=== PATIENT | female | born 1955 | race Caucasian/White ===

== ENCOUNTER → 2018-06-13 | Outpatient (CLI) | payer MEDICAID ==
[~2018-06-13] MED LIST: APIX5TAB PO; DILT360C26 PO; LEVO125T5 PO; LORA-446 PO; METO25TA35 PO; SOTA80TA18 PO
[2018-06-13 14:35] LABS: BASOPHILS # (AUTO) 0.07 x10^3/uL (0-0.1); BASOPHILS % (AUTO) 1 % (0-1); EOSINOPHILS # (AUTO) 0.19 x10^3/uL (0-0.4); EOSINOPHILS % (AUTO) 2 % (1-7); LYMPHOCYTES # (AUTO) 2.57 x10^3/uL (1-3.4); LYMPHOCYTES % (AUTO) 22 % (22-44); MD NO; MEAN CORPUSCULAR HEMOGLOBIN 26.4 pg (27.0-34.8); MEAN CORPUSCULAR HGB CONC 32.7 g/dL (32.4-35.8); MEAN CORPUSCULAR VOLUME 80.9 fL (80-100); MEAN PLATELET VOLUME 9.9 fL (7.4-10.4); MONOCYTES # (AUTO) 1.17 x10^3/uL (0.2-0.8); MONOCYTES % (AUTO) 10 % (2-9); NEUTROPHILS # (AUTO) 7.68 x10^3/uL (1.8-6.8); NEUTROPHILS % (AUTO) 66 % (42-75); PLATELET COUNT 265 x10^3/uL (130-400); RED BLOOD COUNT 6.39 x10^6/uL (3.82-5.3); RED CELL DISTRIBUTION WIDTH 15.8 % (9.6-15.2)
[2018-06-13 14:48] LABS: ALBUMIN 4.1 g/dL (3.4-5.0); ANION GAP 9 mmol/L (5-15); CALCIUM 8.9 mg/dL (8.5-10.1); CHLORIDE 108 mmol/L (98-107)
[2018-06-13 14:52] LABS: ALANINE AMINOTRANSFERASE 26 U/L (12-78); ALKALINE PHOSPHATASE 126 U/L (45-117); BILIRUBIN,TOTAL 0.9 mg/dL (0.2-1.0); CREATININE 1.56 mg/dL (0.55-1.02); TOTAL PROTEIN 7.4 g/dL (6.4-8.2)
== END | disposition home or self-care (01) ==
LOC: STAR 13:42
PROVIDERS: ATTEND Internal Medicine Cardiovascular Disease
DX: Z01.818 Encounter for other preprocedural examination (principal); I48.91 Unspecified atrial fibrillation
CPT/HCPCS: 36415; 80053; 85025

== ENCOUNTER → 2018-06-13 | Outpatient (CLI) | payer MEDICAID ==
[~2018-06-13] MED LIST changes: -LORA-446 PO; -METO25TA35 PO; +OMNIPAQUE 350 MG/ML, 150 ML BOTTLE ONE; -SOTA80TA18 PO
== END | disposition home or self-care (01) ==
LOC: CFH 12:00
PROVIDERS: ATTEND Internal Medicine Cardiovascular Disease
DX: I25.10 Atherosclerotic heart disease of native coronary artery without angina pectoris (principal)
CPT/HCPCS: 71046; 75572; Q9967

== ENCOUNTER 2018-06-19 05:57 | Inpatient (IN) | payer MEDICAID ==
[2018-06-13 15:24] VITALS: BP 138/97
[~2018-06-19] VITALS: Ht 170.2 cm; Wt 100.2 kg
[~2018-06-19 05:57] MED LIST changes: -OMNIPAQUE 350 MG/ML, 150 ML BOTTLE ONE
[2018-06-19] MEDS ORDERED: SODIUM CHLORIDE 0.9% 1,000 ML IV SCH ×2 (06:01→06:30)
[2018-06-19] MEDS ORDERED: METO25TA35 PO (06:21)
[2018-06-19] MEDS ORDERED: LORA-446 PO (06:21)
[2018-06-19] MEDS ORDERED: LIDOCAINE 1%, 50ML ONE (07:40)
[2018-06-19] MEDS ORDERED: PROTAMINE SULFATE 10 MG/ML, 5ML ONE (07:40)
[2018-06-19] MEDS ORDERED: HEPARIN 1,000 UNITS/ML, 10ML ONE ×2 (07:40→07:41)
[2018-06-19] MEDS ORDERED: MIDAZOLAM 1 MG/ML, 2ML ONE (07:57)
[2018-06-19] MEDS ORDERED: FENTANYL PF 250 MCG/5ML ONE (07:58)
[2018-06-19] MEDS ORDERED: SUCCINYLCHOLINE 20 MG/ML, 10ML ONE (08:03)
[2018-06-19] MEDS ORDERED: PHENYLEPHRINE 10 MG/ML ONE (08:03)
[2018-06-19] MEDS ORDERED: ROCURONIUM 10 MG/ML,10ML ONE (08:03)
[2018-06-19] MEDS ORDERED: PROPOFOL 10 MG/ML, 20ML ONE (10:32)
[2018-06-19] MEDS ORDERED: ONDANSETRON 2MG/ML, 2ML ONE ×2 (10:33)
[2018-06-19] MEDS ORDERED: DEXAMETHASONE 4 MG/ML, 1ML ONE ×2 (10:33)
[2018-06-19] MEDS ORDERED: ALBUTEROL SULFATE 2.5 MG/3 ML ONE ×3 (10:58→19:11)
[2018-06-19] MEDS ORDERED: PROMETHAZINE 12.5 MG SUPP PR PRN (11:00)
[2018-06-19] MEDS ORDERED: MIDAZOLAM 1 MG/ML, 2ML IV PRN (11:00)
[2018-06-19] MEDS ORDERED: LORazepam 1MG TABLET PO PRN (11:00)
[2018-06-19] MEDS: ALBUTEROL SULFATE 2.5 MG/3 ML NPPB PRN ×2 (11:00→11:15)
[2018-06-19] MEDS ORDERED: ACETAMINOPHEN 325 MG TABLET PO PRN (11:00)
[2018-06-19] MEDS ORDERED: MEPERIDINE/PF 25MG/0.5ML IVPush PRN (11:00)
[2018-06-19] MEDS ORDERED: hydrALAzine 20 MG/ML, 1ML IV PRN (11:00)
[2018-06-19] MEDS ORDERED: LORazepam 2 MG/ML, 1ML IVPush PRN (11:00)
[2018-06-19] MEDS ORDERED: FENTANYL PF 100 MCG/2ML IV PRN (11:00)
[2018-06-19] MEDS ORDERED: OXYcodone 5 MG/5 ML ORAL.SOL UDC PO PRN (11:00)
[2018-06-19] MEDS ORDERED: ONDANSETRON 2MG/ML, 2ML IV PRN (11:00)
[2018-06-19] MEDS ORDERED: LABETALOL 5MG/ML, 20ML IV PRN (11:00)
[2018-06-19] MEDS ORDERED: HYDROmorphone 1 MG/ML, 1ML IV PRN (11:00)
[2018-06-19] MEDS ORDERED: PROMETHAZINE 25 MG/ML, 1ML IV PRN (11:00)
[2018-06-19] MEDS ORDERED: EPHEDRINE 50 MG/ML, 1ML IVPush PRN (11:00)
[2018-06-19] MEDS ORDERED: ONDANSETRON ODT 8 MG PO PRN (11:00)
[2018-06-19] MEDS ORDERED: OXYcodone 5 MG/5 ML ORAL.SOL UDC ONE (11:57)
[2018-06-19] MEDS ORDERED: APIXABAN 5 MG TABLET ONE (11:57)
[2018-06-19] MEDS: APIXABAN 5 MG TABLET PO SCH (11:59)
[2018-06-19] MEDS ORDERED: LORazepam 2 MG/ML, 1ML ONE (12:02)
[2018-06-19 12:38] VITALS: BP 93/65
[2018-06-19 17:37] VITALS: BP 125/72
[2018-06-19] MEDS: SOTALOL 80MG TABLET PO SCH (17:44)
[2018-06-19] MEDS: ACETAMINOPHEN 325 MG TABLET PO PRN (17:45)
[2018-06-19 18:56] VITALS: BP 108/73
[2018-06-19] MEDS ORDERED: ALBUTEROL SULFATE 2.5 MG/3 ML NPPB PRN (19:30)
[2018-06-19] MEDS ORDERED: ALBUTEROL/IPRATROPIUM 2.5MG/0.5MG, 3 ML NPPB SCH (20:00)
[2018-06-20 02:29] VITALS: BP 124/86
[2018-06-20] MEDS ORDERED: LEVOTHYROXINE 125 MCG TABLET PO SCH ×2 (06:00→09:00)
[2018-06-20 06:03] VITALS: BP 148/98
[2018-06-20] MEDS: SOTALOL 80MG TABLET PO SCH ×2 (06:09→17:28)
[2018-06-20 07:45] VITALS: BP 118/76
[2018-06-20] MEDS: DILTIAZEM CD 180 MG CAP.ER.24H PO SCH (08:39)
[2018-06-20] MEDS: APIXABAN 5 MG TABLET PO SCH ×2 (08:39→20:09)
[2018-06-20 12:56] VITALS: BP 114/74
[2018-06-20 17:26] VITALS: BP 151/96
[2018-06-20] MEDS: ACETAMINOPHEN 325 MG TABLET PO PRN (17:28)
[2018-06-20 18:49] VITALS: BP 131/83
[2018-06-20] MEDS: ZOLPIDEM 5MG TABLET PO PRN (20:09)
[2018-06-21 01:09] VITALS: BP 114/78
[2018-06-21] MEDS: SOTALOL 80MG TABLET PO SCH ×2 (05:40→17:59)
[2018-06-21 07:25] VITALS: BP 143/95
[2018-06-21] MEDS: APIXABAN 5 MG TABLET PO SCH ×2 (08:55→19:57)
[2018-06-21] MEDS: DILTIAZEM CD 180 MG CAP.ER.24H PO SCH (08:56)
[2018-06-21 12:25] VITALS: BP 153/93
[2018-06-21] MEDS: ACETAMINOPHEN 325 MG TABLET PO PRN (13:31)
[2018-06-21] MEDS: GUAIFENESIN ER 600 MG TABLET PO SCH ×2 (15:32→19:57)
[2018-06-21 18:29] VITALS: BP 149/87
[2018-06-21] MEDS: ZOLPIDEM 5MG TABLET PO PRN (19:57)
[2018-06-22 00:57] VITALS: BP 146/92
[2018-06-22] MEDS: SOTALOL 80MG TABLET PO SCH (06:21)
[2018-06-22 07:18] VITALS: BP 162/98
[2018-06-22] MEDS: DILTIAZEM CD 180 MG CAP.ER.24H PO SCH (09:05)
[2018-06-22] MEDS: APIXABAN 5 MG TABLET PO SCH (09:06)
[2018-06-22] MEDS: GUAIFENESIN ER 600 MG TABLET PO SCH (09:07)
[2018-06-22] MEDS ORDERED: SOTA80TA18 PO (11:29)
== END 2018-06-22 13:23 | disposition home or self-care (01) | DRG 274 ==
LOC: CACL 05:57 → ORIP 10:44 → 5SO 13:46
PROVIDERS: ADMIT Internal Medicine Cardiovascular Disease; ATTEND Internal Medicine Cardiovascular Disease
PROC: 02K83ZZ Map Conduction Mechanism, Percutaneous Approach (ICD-10-PCS; 2018-06-19)
PROC: 4A023FZ Measurement of Cardiac Rhythm, Percutaneous Approach (ICD-10-PCS; 2018-06-19)
PROC: 4A0234Z Measurement of Cardiac Electrical Activity, Percutaneous Approach (ICD-10-PCS; 2018-06-19)
PROC: B51 Imaging, Veins, Fluoroscopy (ICD-10-PCS; 2018-06-19)
PROC: 03HY32Z Insertion of Monitoring Device into Upper Artery, Percutaneous Approach (ICD-10-PCS; 2018-06-19)
PROC: 4A133B1 Monitoring of Arterial Pressure, Peripheral, Percutaneous Approach (ICD-10-PCS; 2018-06-19)
PROC: 4A133J1 Monitoring of Arterial Pulse, Peripheral, Percutaneous Approach (ICD-10-PCS; 2018-06-19)
PROC: 02583ZZ Destruction of Conduction Mechanism, Percutaneous Approach (ICD-10-PCS; principal; 2018-06-19 08:00)
DX: I48.0 Paroxysmal atrial fibrillation (principal); D68.69 Other thrombophilia; J44.1 Chronic obstructive pulmonary disease with (acute) exacerbation; E03.9 Hypothyroidism, unspecified; I27.20 Pulmonary hypertension, unspecified; I11.9 Hypertensive heart disease without heart failure; G89.29 Other chronic pain; E66.9 Obesity, unspecified; Z72.0 Tobacco use
CPT/HCPCS: 93613; 93656; 93662; J7613; J7620; 85347; 93005; 93306; 93312; 93321; 93325; 94640; C1732; C1766; C1893; C1894; J1100; J1644; J2250; J2405; J2704; J2720; J3010; J3490; C1730; C1759; J0330; J2060; J2370; Q9967

== ENCOUNTER 2018-06-24 15:23 | Inpatient (IN) | payer MEDICAID ==
[~2018-06-24] VITALS: Ht 170.2 cm; Wt 95.5 kg
[~2018-06-24 15:23] MED LIST changes: +LORA-446 PO; +METO25TA35 PO; +SOTA80TA18 PO
[2018-06-24 15:26] VITALS: BP 128/82
[2018-06-24] MEDS ORDERED: DILTIAZEM 125 MG in SODIUM CHLORIDE 0.9% 100 ML IV PRN (15:30)
[2018-06-24] MEDS ORDERED: PLEASE ENTER HEIGHT AND WEIGHT MC SCH (16:00)
[2018-06-24] MEDS ORDERED: LORazepam 1MG TABLET PO PRN (16:30)
[2018-06-24] MEDS ORDERED: DOCUSATE 100 MG CAPSULE PO PRN (16:30)
[2018-06-24] MEDS ORDERED: POLYETHYLENE GLYCOL 17 GM PACKET PO PRN (16:30)
[2018-06-24] MEDS ORDERED: ACETAMINOPHEN 325 MG TABLET PO PRN (16:30)
[2018-06-24] MEDS ORDERED: BISACODYL 10 MG SUPP PR PRN (16:30)
[2018-06-24] MEDS: SOTALOL 80MG TABLET PO SCH (17:17)
[2018-06-24 17:20] LABS: THYROID STIMULATING HORMONE 6.7 mIU/L (0.358-3.740)
[2018-06-24 18:32] LABS: BASOPHILS # (AUTO) 0.03 x10^3/uL (0-0.1); BASOPHILS % (AUTO) 0 % (0-1); EOSINOPHILS # (AUTO) 0.03 x10^3/uL (0-0.4); EOSINOPHILS % (AUTO) 0 % (1-7); LYMPHOCYTES % (AUTO) 16 % (22-44); MD NO; MEAN CORPUSCULAR HEMOGLOBIN 26.2 pg (27.0-34.8); MEAN CORPUSCULAR HGB CONC 32.2 g/dL (32.4-35.8); MEAN CORPUSCULAR VOLUME 81.5 fL (80-100); MEAN PLATELET VOLUME 10.4 fL (7.4-10.4); MONOCYTES # (AUTO) 0.77 x10^3/uL (0.2-0.8); MONOCYTES % (AUTO) 6 % (2-9); NEUTROPHILS # (AUTO) 9.93 x10^3/uL (1.8-6.8); NEUTROPHILS % (AUTO) 77 % (42-75); PLATELET COUNT 278 x10^3/uL (130-400); RED BLOOD COUNT 6.38 x10^6/uL (3.82-5.3); RED CELL DISTRIBUTION WIDTH 15.7 % (9.6-15.2)
[2018-06-24] MEDS: SODIUM CHLORIDE 0.9% 1,000 ML IV SCH (18:34)
[2018-06-24 18:49] LABS: CHLORIDE 107 mmol/L (98-107)
[2018-06-24 18:50] LABS: ALANINE AMINOTRANSFERASE 52 U/L (12-78); ALBUMIN 3.6 g/dL (3.4-5.0); ANION GAP 7 mmol/L (5-15); CALCIUM 8.8 mg/dL (8.5-10.1); CREATININE 1.33 mg/dL (0.55-1.02)
[2018-06-24 19:00] LABS: ALKALINE PHOSPHATASE 137 U/L (45-117); BILIRUBIN,TOTAL 1.1 mg/dL (0.2-1.0); FREE T4 (FREE THYROXINE) 0.86 ng/dL (0.76-1.46); TOTAL PROTEIN 7.3 g/dL (6.4-8.2)
[2018-06-24 20:00] VITALS: BP 113/83
[2018-06-24] MEDS: APIXABAN 5 MG TABLET PO SCH (21:56)
[2018-06-24] MEDS: ZOLPIDEM 5MG TABLET PO PRN (21:56)
[2018-06-25 02:00] VITALS: BP 107/71
[2018-06-25 04:21] VITALS: BP 173/85
[2018-06-25 05:57] LABS: BASOPHILS # (AUTO) 0.04 x10^3/uL (0-0.1); BASOPHILS % (AUTO) 0 % (0-1); EOSINOPHILS # (AUTO) 0.15 x10^3/uL (0-0.4); EOSINOPHILS % (AUTO) 1 % (1-7); LYMPHOCYTES # (AUTO) 2.35 x10^3/uL (1-3.4); LYMPHOCYTES % (AUTO) 21 % (22-44); MD NO; MEAN CORPUSCULAR HEMOGLOBIN 26.3 pg (27.0-34.8); MEAN CORPUSCULAR HGB CONC 32.4 g/dL (32.4-35.8); MEAN CORPUSCULAR VOLUME 81.3 fL (80-100); MEAN PLATELET VOLUME 9.5 fL (7.4-10.4); MONOCYTES % (AUTO) 12 % (2-9); NEUTROPHILS # (AUTO) 7.41 x10^3/uL (1.8-6.8); NEUTROPHILS % (AUTO) 66 % (42-75); PLATELET COUNT 261 x10^3/uL (130-400); RED BLOOD COUNT 5.79 x10^6/uL (3.82-5.3); RED CELL DISTRIBUTION WIDTH 15.9 % (9.6-15.2)
[2018-06-25 06:03] VITALS: BP 139/91
[2018-06-25] MEDS: SOTALOL 80MG TABLET PO SCH ×2 (06:10→18:26)
[2018-06-25] MEDS: LEVOTHYROXINE 125 MCG TABLET PO SCH (06:10)
[2018-06-25 06:11] LABS: CHLORIDE 105 mmol/L (98-107)
[2018-06-25 06:19] LABS: ANION GAP 7 mmol/L (5-15); CALCIUM 8.6 mg/dL (8.5-10.1)
[2018-06-25 07:32] VITALS: BP 129/83
[2018-06-25] MEDS: APIXABAN 5 MG TABLET PO SCH ×2 (08:38→20:09)
[2018-06-25] MEDS: DILTIAZEM CD 180 MG CAP.ER.24H PO SCH (08:38)
[2018-06-25] MEDS: SODIUM CHLORIDE 0.9% 1,000 ML IV SCH ×2 (09:07→20:09)
[2018-06-25 12:48] VITALS: BP 146/91
[2018-06-25 20:00] VITALS: BP 130/86
[2018-06-25] MEDS: ZOLPIDEM 5MG TABLET PO PRN (20:09)
[2018-06-26 02:00] VITALS: BP 130/78
[2018-06-26 06:18] VITALS: BP 150/101
[2018-06-26] MEDS: SOTALOL 80MG TABLET PO SCH (06:19)
[2018-06-26] MEDS: LEVOTHYROXINE 125 MCG TABLET PO SCH (06:19)
[2018-06-26 06:51] VITALS: BP 155/97
[2018-06-26] MEDS: SODIUM CHLORIDE 0.9% 1,000 ML IV SCH (07:14)
[2018-06-26] MEDS: APIXABAN 5 MG TABLET PO SCH (08:36)
[2018-06-26] MEDS: DILTIAZEM CD 180 MG CAP.ER.24H PO SCH (08:37)
== END 2018-06-26 12:18 | disposition home or self-care (01) | DRG 392 ==
LOC: 5SO 15:23 → DCLOUNGE 06-26 12:06
PROVIDERS: ADMIT Hospitalist; ATTEND Hospitalist
DX: K30 Functional dyspepsia (principal); D68.69 Other thrombophilia; I48.1 Persistent atrial fibrillation; G89.29 Other chronic pain; E03.9 Hypothyroidism, unspecified; E66.9 Obesity, unspecified; I27.20 Pulmonary hypertension, unspecified; I13.10 Hypertensive heart and chronic kidney disease without heart failure, with stage 1 through stage 4 chronic kidney disease, or unspecified chronic kidney disease; J44.9 Chronic obstructive pulmonary disease, unspecified; N18.9 Chronic kidney disease, unspecified; Z72.0 Tobacco use; Z79.01 Long term (current) use of anticoagulants; Z68.33 Body mass index [BMI] 33.0-33.9, adult; Z79.890 Hormone replacement therapy
CPT/HCPCS: 36415; 80048; 80053; 83690; 83735; 84100; 84439; 84443; 84481; 85025; G0378; J7030

== ENCOUNTER 2019-01-22 06:32 | Day surgery (SDC) | payer MEDICAID ==
[~2019-01-22] VITALS: Ht 162.6 cm; Wt 92.0 kg
[2019-01-22] MEDS ORDERED: GABA300C10 PO (07:06)
[2019-01-22] MEDS ORDERED: AMLO5TAB4 PO (07:06)
[2019-01-22] MEDS ORDERED: SOTA120T26 PO (07:06)
[2019-01-22] MEDS ORDERED: ATOR40TA PO (07:06)
[2019-01-22] MEDS ORDERED: FENO145T30 PO (07:06)
[2019-01-22 07:24] LABS: ANION GAP 8 mmol/L (5-15); CALCIUM 9.3 mg/dL (8.5-10.1); CHLORIDE 112 mmol/L (98-107); CREATININE 1.14 mg/dL (0.55-1.02)
[2019-01-22] MEDS ORDERED: PROPOFOL 10 MG/ML, 20ML ONE (16:16)
== END 2019-01-22 09:04 | disposition home or self-care (01) ==
LOC: CACL 06:32
PROVIDERS: ATTEND Internal Medicine Cardiovascular Disease
DX: I48.91 Unspecified atrial fibrillation (principal); I10 Essential (primary) hypertension; E03.9 Hypothyroidism, unspecified; Z79.899 Other long term (current) drug therapy; Z98.890 Other specified postprocedural states
CPT/HCPCS: 36415; 71046; 80048; 92960; 93005; J2704

== ENCOUNTER 2019-04-21 09:00 | Inpatient (IN) | payer MEDICAID ==
[~2019-04-21] VITALS: Ht 170.2 cm; Wt 93.8 kg
[~2019-04-21 09:00] MED LIST changes: +AMLO5TAB4 PO; +ATOR40TA PO; +FENO145T30 PO; +GABA300C10 PO; +SOTA120T26 PO
[2019-04-21 09:58] VITALS: BP 143/105
[2019-04-21] MEDS ORDERED: PLEASE ENTER HEIGHT AND WEIGHT MC SCH (10:00)
[2019-04-21] MEDS ORDERED: IPRA4AER IH (10:07)
[2019-04-21] MEDS ORDERED: SOTA80TA PO (10:07)
[2019-04-21] MEDS ORDERED: ALBU90AE INH (10:07)
[2019-04-21 10:30] LABS: ANION GAP 11 mmol/L (5-15); CALCIUM 8.9 mg/dL (8.5-10.1); CHLORIDE 110 mmol/L (98-107); CHOLESTEROL, TOTAL 158 mg/dL (140-239); CREATININE 0.98 mg/dL (0.55-1.02)
[2019-04-21 10:39] LABS: CHOL/HDL RATIO 3.6; HDL CHOL % 28 % (28-40); HDL CHOLESTEROL (DIRECT) 44 mg/dL (40-60); TRIGLYCERIDES 395 mg/dL (50-200); VLDL CHOLESTEROL 79 mg/dL (0-25)
[2019-04-21 10:40] LABS: FREE T4 (FREE THYROXINE) 1.32 ng/dL (0.76-1.46); LDL CHOLESTEROL,CALCULATED 35 mg/dL (54-169); LDL/HDL RATIO 0.8 (0.5-3.0); THYROID STIMULATING HORMONE 0.496 mIU/L (0.358-3.740)
[2019-04-21] MEDS ORDERED: BISACODYL 10 MG SUPP PR PRN (11:00)
[2019-04-21] MEDS ORDERED: BISACODYL 5 MG EC TABLET PO PRN (11:00)
[2019-04-21] MEDS: ACETAMINOPHEN 325 MG TABLET PO PRN (11:55)
[2019-04-21] MEDS ORDERED: PRED20TA PO (12:45)
[2019-04-21] MEDS ORDERED: ALBUTEROL/IPRATROPIUM 2.5MG/0.5MG, 3 ML ONE (12:45)
[2019-04-21 14:34] VITALS: BP 132/96
[2019-04-21] MEDS ORDERED: ALBUTEROL/IPRATROPIUM 2.5MG/0.5MG, 3 ML NPPB SCH (15:00)
[2019-04-21] MEDS ORDERED: (Ipratropium/Albuterol Sulfate (Combivent Respimat Inhal Spray IH PRN (15:00)
[2019-04-21 19:20] VITALS: BP 168/103
[2019-04-21] MEDS: SOTALOL 80MG TABLET PO SCH (19:49)
[2019-04-21] MEDS ORDERED: DILTIAZEM 5 MG/ML, 5ML ONE (20:12)
[2019-04-21] MEDS: ATORVASTATIN 40 MG TABLET PO SCH (20:14)
[2019-04-21] MEDS: APIXABAN 5 MG TABLET PO SCH (20:15)
[2019-04-21] MEDS: DILTIAZEM 5 MG/ML, 5ML IVPush PRN ×2 (20:16→22:25)
[2019-04-21] MEDS: ALBUTEROL/IPRATROPIUM 2.5MG/0.5MG, 3 ML NPPB SCH (21:00)
[2019-04-21 22:01] VITALS: BP 125/86
[2019-04-22 00:30] VITALS: BP 134/97
[2019-04-22] MEDS: ZOLPIDEM 5MG TABLET PO PRN ×2 (00:53→20:30)
[2019-04-22] MEDS: LEVOTHYROXINE 125 MCG TABLET PO SCH (05:39)
[2019-04-22] MEDS: AMLODIPINE 5 MG TABLET PO SCH (07:26)
[2019-04-22] MEDS: GABAPENTIN 300 MG CAPSULE PO SCH (07:26)
[2019-04-22] MEDS: FENOFIBRATE 145 MG TABLET PO SCH (07:26)
[2019-04-22] MEDS: SOTALOL 80MG TABLET PO SCH ×2 (07:26→20:30)
[2019-04-22] MEDS: APIXABAN 5 MG TABLET PO SCH ×2 (07:26→20:30)
[2019-04-22 08:26] VITALS: BP 132/87
[2019-04-22] MEDS: ALBUTEROL/IPRATROPIUM 2.5MG/0.5MG, 3 ML NPPB SCH ×2 (09:00→14:24)
[2019-04-22 14:00] VITALS: BP 161/75
[2019-04-22] MEDS ORDERED: PROPOFOL 10 MG/ML, 20ML ONE (14:20)
[2019-04-22] MEDS ORDERED: ALBUTEROL/IPRATROPIUM 2.5MG/0.5MG, 3 ML NPPB PRN (14:30)
[2019-04-22] MEDS: ACETAMINOPHEN 325 MG TABLET PO PRN (16:32)
[2019-04-22 18:52] VITALS: BP 143/97
[2019-04-22] MEDS: ATORVASTATIN 40 MG TABLET PO SCH (20:30)
[2019-04-23 02:58] VITALS: BP 138/93
[2019-04-23] MEDS: LEVOTHYROXINE 125 MCG TABLET PO SCH (05:39)
[2019-04-23] MEDS: AMLODIPINE 5 MG TABLET PO SCH (08:21)
[2019-04-23] MEDS: APIXABAN 5 MG TABLET PO SCH (08:21)
[2019-04-23] MEDS: SOTALOL 80MG TABLET PO SCH (08:21)
[2019-04-23] MEDS: FENOFIBRATE 145 MG TABLET PO SCH (08:21)
[2019-04-23] MEDS: GABAPENTIN 300 MG CAPSULE PO SCH ×2 (08:21→08:23)
[2019-04-23 08:25] VITALS: BP 166/121
[2019-04-23] MEDS ORDERED: SOTA80TA PO (09:28)
[2019-04-23] MEDS ORDERED: GABAPENTIN 300 MG CAPSULE PO ONE (11:00)
== END 2019-04-23 12:56 | disposition home or self-care (01) | DRG 309 ==
LOC: 5SO 09:26 → DCLOUNGE 04-23 12:45
PROVIDERS: ADMIT Internal Medicine Cardiovascular Disease; ATTEND Internal Medicine Cardiovascular Disease
PROC: 5A2204Z Restoration of Cardiac Rhythm, Single (ICD-10-PCS; principal; 2019-04-22 14:00)
DX: I48.0 Paroxysmal atrial fibrillation (principal); D68.69 Other thrombophilia; E66.9 Obesity, unspecified; Z68.32 Body mass index [BMI] 32.0-32.9, adult; E03.9 Hypothyroidism, unspecified; E78.5 Hyperlipidemia, unspecified; J44.9 Chronic obstructive pulmonary disease, unspecified; Z87.891 Personal history of nicotine dependence; I69.328 Other speech and language deficits following cerebral infarction
CPT/HCPCS: 36415; 92960; J7620; 80048; 80061; 84439; 84443; 85014; 85018; 93005; 94640; G0378; J2704; J7512

== ENCOUNTER 2020-02-03 07:58 | Day surgery (SDC) | payer MEDICARE, MEDICAID ==
[~2020-02-03] VITALS: Ht 170.2 cm; Wt 83.7 kg
[~2020-02-03 07:58] MED LIST changes: +ACET325T26 PO; +ALBU6.7H8 INH; +ALBU90AE INH; +AMLO-150 PO; +DILT120T4 PO; +DILT180C72 PO; +FENO145T19 PO; -FENO145T30 PO; +HYDR-3237 PO; +IPRA4AER IH; +PRED20TA PO; +SOTA120T14 PO; +SOTA120T7 PO; +SOTA80TA PO; +TRAM-47 PO
[2020-02-03] MEDS ORDERED: LACTATED RINGERS 1,000 ML IV SCH (08:23)
[2020-02-03 08:24] VITALS: BP 162/113
[2020-02-03] MEDS ORDERED: LIDOCAINE-MPF 1%, 2ML INFIL ONE (08:30)
[2020-02-03] MEDS ORDERED: KETOROLAC 30 MG/1 ML IV PRN (09:00)
[2020-02-03] MEDS ORDERED: hydrALAzine 20 MG/ML, 1ML IV PRN (09:00)
[2020-02-03] MEDS ORDERED: FENTANYL PF 100 MCG/2ML IV PRN (09:00)
[2020-02-03] MEDS ORDERED: OXYcodone 5 MG/5 ML ORAL.SOL UDC PO PRN (09:00)
[2020-02-03] MEDS ORDERED: CHLORHEXIDINE 15 ML UDC MM ONE (09:00)
[2020-02-03] MEDS ORDERED: ACETAMINOPHEN 325 MG TABLET PO PRN (09:00)
[2020-02-03] MEDS ORDERED: ONDANSETRON 2MG/ML, 2ML IV PRN (09:00)
[2020-02-03] MEDS ORDERED: LABETALOL 5MG/ML, 20ML IV PRN (09:00)
[2020-02-03] MEDS ORDERED: SUCCINYLCHOLINE 20 MG/ML, 10ML ONE (09:08)
[2020-02-03] MEDS ORDERED: ONDANSETRON 2MG/ML, 2ML ONE (09:08)
[2020-02-03] MEDS ORDERED: SUGAMMADEX 200 MG/2 ML IVPush ONE (09:08)
[2020-02-03] MEDS ORDERED: ROCURONIUM 10 MG/ML,10ML ONE (09:08)
[2020-02-03] MEDS ORDERED: PROPOFOL 10 MG/ML, 20ML ONE (09:08)
[2020-02-03] MEDS ORDERED: OMNIPAQUE 350 MG/ML, 50 ML BOTTLE ONE (09:42)
[2020-02-03] MEDS ORDERED: hydrALAzine 20 MG/ML, 1ML IV ONE (11:30)
[2020-02-03] MEDS ORDERED: hydrALAzine 20 MG/ML, 1ML ONE (11:34)
== END 2020-02-03 12:15 | disposition home or self-care (01) ==
LOC: OUT 07:58
PROVIDERS: ATTEND Internal Medicine
DX: Z46.59 Encounter for fitting and adjustment of other gastrointestinal appliance and device (principal); K80.50 Calculus of bile duct without cholangitis or cholecystitis without obstruction; K57.10 Diverticulosis of small intestine without perforation or abscess without bleeding; I10 Essential (primary) hypertension; I48.91 Unspecified atrial fibrillation; Z86.73 Personal history of transient ischemic attack (TIA), and cerebral infarction without residual deficits; Z95.0 Presence of cardiac pacemaker
CPT/HCPCS: 43264; 43275; 74328; J0360; J7120; Q9967; J2405; J2704; J0330